=== PATIENT | male | born 1985 | race Caucasian/White ===

== ENCOUNTER 2017-02-14 14:45 | Emergency (ER) | payer MEDICAID ==
[2017-02-14 14:54] VITALS: TEMP 99
[2017-02-14] MEDS ORDERED: LET GEL TOPICAL 1 EA SYR TP ONE ×2 (15:03→15:17)
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
[2017-02-14 18:10] VITALS: BP 116/77; PULSE 84; RESP 14; O2SAT 95
== END 2017-02-14 18:10 | disposition home or self-care (01) ==
PROC: 0HQ1XZZ Repair Face Skin, External Approach (ICD-10-PCS; principal; 2017-02-14)
DX: S01.81XA Laceration without foreign body of other part of head, initial encounter (principal); S40.211A Abrasion of right shoulder, initial encounter; S80.811A Abrasion, right lower leg, initial encounter; S80.812A Abrasion, left lower leg, initial encounter; W01.198A Fall on same level from slipping, tripping and stumbling with subsequent striking against other object, initial encounter; Y99.8 Other external cause status; Y93.89 Activity, other specified